=== PATIENT | male | born 1965 | race Caucasian/White ===

== ENCOUNTER 2022-01-07 10:19 | Emergency (ER) | payer BC ==
--- OUTSIDE RECORDS SUMMARY | 2022-01-07 10:21 | XMS REPORT | Continuity of Care Document ---
:1965 Author Organization [facility] t Address [address] [place] [address] [address]. [address] [place] [address] Care Team Providers Name Role Phone Sandra Alex Attending Clinician Unavailable Sandra Alex Admitting Clinician Unavailable Payers Payer Name Policy Type Policy Number Effective Date Expiration Date S ource Problems This patient has no known problems. Allergies, Adverse Reactions, Alerts Allergy Allergy Status Severity Reaction(s) Onset Inactive Treating Comm ents Source Name Type Date Date Clinician gene DA Active MO LISAY [facility] e 08-04 [place] 00:00: [facility] Medications This patient has no known medications. Procedures This patient has no known procedures. Encounters Start End Encounter Admission Attending Care Care Encounter Source Date/Time Date/Time Type Type Clinicians Facility Department ID 2021-08-14 2021-08-14 Outpatient MOMO BenjaminWEST albarranALIREZA DAYS [id number] [facility] 09:42:00 09:42:00 Maxim [id number] [place] [facility] 2021-08-14 2021-08-14 Outpatient LEONCIO Cali [facility] [id number] [facility] 09:42:00 09:42:00 Maxim 89 [place] [facility] Results Test Description Test Time Test Comments Results Result Comments Source [id number] 2021-08-14 08:55:00 Test Item Value Reference Range Interpretation Comme nts [id number] (test code = Negative Negative The test was performed at: [facility] [id number]) [facility]: 08/08/21Note: t his entry is for TRACKING purpos es only and the testwas done ou [facility], the perfroming entitiy isfound in specimen comments. The test was performed at: [facility] on: 08/08/21Patient's account number from transferring facility: [id number] patient's current lab results are: Negative
[2022-01-07] MEDS ORDERED: NA CHLORIDE 0.9% 1,000 ML ONE ×2 (11:24→14:27)
[2022-01-07 11:31] LABS: Absolute Lymphocytes (CBC) 0.6 K/uL (0.7-4.9); Hematocrit 38.9 % (39.6-49.0); Lymphocytes % 3.8 % (15.3-44.8); MPV 8.2 fL (7.6-11.3); RBC Red Blood Cell Count 4.78 M/uL (4.33-5.43)
[2022-01-07 11:34] LABS: Albumin 3.2 g/dL (3.4-5.0); Bilirubin Total 1.3 mg/dL (0.2-1.0); Protein, Total 7.1 g/dL (6.4-8.2)
[2022-01-07 11:35] LABS: Urine Blood 2+ (Negative); Urine Glucose Negative (Negative); Urine Protein 1+ (Negative); Urine Specific Gravity >=1.030 (1.005-1.030)
[2022-01-07 11:51] LABS: Urine Bacteria >50 /HPF (NONE SEEN); Urine Mucus 2+ /HPF (NONE SEEN); Urine Urothelial Cells <5 /HPF (NONE SEEN)
--- NOTE | 2022-01-07 12:25 | RAD REPORT ---
EXAM DESCRIPTION: CT - Abdomen Pelvis Wo Contrast - 01/07/2022 11:49 am CLINICAL HISTORY: abdominal pain, dysuria COMPARISON: <Comparisons> CT abdomen October 2021 TECHNIQUE: Axial [address] imaging of the abdomen and pelvis was performed without IV contrast. No IV contrast was given because of allergy, abnormal renal function, patient refusal or physician re quest. No oral contrast administered. All CT scans are performed using dose optimization technique as appropriate and may include automated exposure control or mA/KV adjustment according to patient size. FINDINGS: No suspicious findings in the lung bases. The liver, spleen and pancreas show no suspicious findings on non-contrast imaging. Liver attenuation shows mild fatty infiltration. Gallbladder is contracted. There are several small layering gallstone s which have been previously seen. No active findings. No biliary tree dilatation. Dilation of the right renal pelvis is present without hydroureter. This is similar to prior imaging. No obstructing or nonobstructing calculi. No edema or stranding in the perinephric fat. Small adrena l masses are present showing attenuation most consistent with adenomas. No change since October. Isoden se renal masses and pyelonephritis cannot be excluded in the absence of IV contrast. Urinary bladder is fully contracted. No bladder calculi seen. Bladder grubbs are accentuated due to contraction but do appear to have congestion or edema present. There is a minimal amount of stranding in the adjacent f at. Prostate gland is prominent with a small amount of stranding in the adjacent fat. Cystitis and/ o r prostatitis are suspected and can be correlated with clinical presentation and lab values. No dilated bowel loops or bowel wall thickening. Appendix is not identified. There appear to be clips the tip of the cecum. No acute right lower quadrant finding seen. No free air or pneumatosis. No mas s or bulky lymphadenopathy. Small to moderate-sized bilateral fat filled inguinal hernias are present . Small fat only umbilical hernia also present. Disc and bone degenerative changes are present. No acute or pathologic bone process. Degenerative francisco nges are most prominent at the L4-5 disc level. IMPRESSION: Cystitis and/ or prostatitis are suspected and can be correlated with clinical presentat ion and in the relevant lab studies. No hydronephrosis or obstructing calculi. No evidence for an acute renal or ureteral process. Additional nonacute findings detailed in the body of the report. Full assessment is limited is the absence of IV contrast.
[2022-01-07] MEDS ORDERED: CEFTRIAXONE 1000 MG/VIAL ONE (14:27)
[2022-01-07] MEDS ORDERED: NA CHLORIDE 0.9% 100 ML ONE (14:27)
--- NOTE | 2022-01-07 15:47 | EDPHYS ---
Physician Documentation [facility] Name: Doug Nieto Jr Age: 56 yrs Sex: Male : 1965 Arrival Date: 01/07/2022 Time: 10:21 Bed 5 Private MD: Cosme Velasquez B ED Physician Kris Mack HPI: 01/07 10:46 This 56 yrs old Male presents to ER via Ambulatory with complaints of Urinary Frequency.pm1 10:46 The patient presents with urinary symptoms, urinary frequency, burning with urination. pm1 Onset: The symptoms/episode began/occurred 2 day(s) ago. Modifying factors: The symptoms are alleviated by nothing, the symptoms are aggravated by nothing. Associated signs and symptoms: Pertinent positives: abdominal pain, Pertinent negatives: diarrhea, fever, nausea, vomiting. Severity of symptoms: in the emergency department the symptoms are actually worse. The patient has not experienced similar symptoms in the past. The patient has been recently seen at an urgent care, today, for similar complaints, and was sent to the [facility] Emergency Department for further evaluation. Historical: - Allergies: 10:30 Cortisone; as6 - Home Meds: 10:30 olmesartan oral [Active]; Magnesium Oxide Oral [Active]; as6 - PMHx: 10:30 Hypertensive disorder; as6 10:31 GERD; as6 - Immunization history:: Client reports receiving the 2nd dose of the Covid vaccine. - Social history:: Smoking status: Patient denies any tobacco usage or history of. ROS: 10:46 Constitutional: Negative for fever, chills, and weight loss, Cardiovascular: Negative pm1 for chest pain, palpitations, and edema, Respiratory: Negative for shortness of breath, cough, wheezing, and pleuritic chest pain. 10:46 Back: Negative for injury and pain. 10:46 MS/Extremity: Negative for injury and deformity, Skin: Negative for injury, rash, and discoloration, Neuro: Negative for headache, weakness, numbness, tingling, and seizure. 10:46 Abdomen/GI: Positive for abdominal pain, of the suprapubic area, Negative for nausea, vomiting, and diarrhea. 10:46 : Positive for urinary frequency, hematuria, burning with urination. 10:46 All other systems are negative. Exam: 10:46 Constitutional: This is a well developed, well nourished patient who is awake, alert, pm1 and in no acute distress. Head/Face: Normocephalic, atraumatic. 10:46 Back: No spinal tenderness. No costovertebral tenderness. Full range of motion. Skin: Warm, dry with normal turgor. Normal color with no rashes, no lesions, and no evidence of cellulitis. MS/ Extremity: Pulses equal, no cyanosis. Neurovascular intact. Full, normal range of motion. 10:46 Eyes: Exam is negative for acute changes, Periorbital structures: appear normal, Pupils: no acute changes, Extraocular movements: no acute changes. 10:46 ENT: Exam is negative for acute changes, Mouth: no acute changes, Lips: normal, moist, Oral mucosa: normal, pink and intact, moist. 10:46 Cardiovascular: Exam negative for acute changes, Rate: normal, Rhythm: regular, Pulses: no pulse deficits are appreciated. 10:46 Respiratory: Exam negative for acute changes, respiratory distress, shortness of breath, Breath sounds: are clear throughout. 10:46 Neuro: Exam negative for acute changes, Orientation: is normal, Mentation: is normal, Motor: is normal, moves all fours. 15:42 Abdomen/GI: Rectal exam: Prostate: enlarged, nontender, rectal tone normal. pm1 Vital Signs: 10:26 BP 104 / 60; Pulse 92; Resp 16; Temp 98.6; Pulse Ox 98% on R/A; Weight 136.08 kg; as6 Height 6 ft. 2 in. (187.96 cm); Pain 10/10; 11:15 BP 101 / 58; Pulse 80; Resp 18; Pulse Ox 98% on R/A; ww 13:00 BP 97 / 56; Pulse 78; Resp 18; Pulse Ox 96% on R/A; ww 14:00 BP 99 / 68; Pulse 86; Resp 16; Pulse Ox 100% on R/A; ww 16:00 BP 114 / 63; Pulse 98; Resp 18 S; Pulse Ox 100% on R/A; aa5 16:49 BP 112 / 64; Pulse 98; Resp 16 S; Pulse Ox 100% on R/A; aa5 10:26 Body Mass Index 38.52 (136.08 kg, 187.96 cm) as6 MDM: 10:39 Patient medically screened. pm1 10:46 ED course: Patient refused pain medications, reports pain is discomfort only. pm1 13:53 Data reviewed: vital signs. Data interpreted: Pulse oximetry: on room air is 98 %. pm1 Interpretation: normal. 15:42 Counseling: I had a detailed discussion with the patient and/or guardian regarding: the pm1 historical points, exam findings, and any diagnostic results supporting the discharge/admit diagnosis, lab results, radiology results, Discussed with patient and he would like to be admitted or to go home. Patient would like to go home. I agree with the patient's decision because he is not vomiting and does not appear toxic. Negative JUANPABLO and I do not clinically feel that prostatitis is present. Impression cystitis and dehydration. Will discharge the patient home with antibiotics. 01/07 10:46 Order name: CBC with Diff; Complete Time: 11:47 pm1 01/07 10:46 Order name: CMP; Complete Time: 11:47 pm1 01/07 10:46 Order name: Lipase; Complete Time: 11:47 pm1 01/07 10:46 Order name: Urine Microscopic Only; Complete Time: 12:40 pm1 01/07 11:35 Order name: Urine Dipstick-Ancillary; Complete Time: 11:47 EDMS 01/07 11:54 Order name: Urine Culture EDMS 01/07 10:46 Order name: IV Saline Lock; Complete Time: 11:10 pm1 01/07 10:46 Order name: Labs collected and sent; Complete Time: 11:10 pm1 01/07 10:46 Order name: Urine Dipstick-Ancillary (obtain specimen); Complete Time: 11:46 pm1 01/07 11:46 Order name: Abdomen ; Complete Time: 12:40 EDMS Administered Medications: 11:23 Drug: NS 0.9% 1000 ml Route: IV; Rate: 1 bolus; Site: left antecubital; ww 12:49 Follow up: Response: No adverse reaction; IV Status: Completed infusion ww 14:31 Drug: Rocephin (cefTRIAXone) 1 grams Route: IV; Rate: calculated rate; Site: left ww antecubital; 14:31 Drug: NS 0.9% 1000 ml Route: IV; Rate: 1000 ml; Site: left antecubital; ww 16:49 Follow up: IV Status: Completed infusion; IV Intake: 1000ml aa5 Disposition: 18:04 Co-signature as Attending Physician, Kris Mack MD. ma2 Disposition Summary: 01/07/22 15:46 Discharge Ordered Location: Home pm1 Problem: new pm1 Symptoms: have improved pm1 Condition: Stable pm1 Diagnosis - Acute cystitis pm1 Followup: pm1 - With: Emergency Department - When: As needed - Reason: Worsening of condition Followup: pm1 - With: Private Physician - When: 2 - 3 days - Reason: Recheck today's complaints, Continuance of care, Re-evaluation by your physician Discharge Instructions: - Discharge Summary Sheet pm1 - Dehydration, Adult pm1 - Urinary Tract Infection, Adult pm1 - Rehydration, Adult pm1 Forms: - Medication Reconciliation Form pm1 - Thank You Letter pm1 - Antibiotic Education pm1 - Prescription Opioid Use pm1 - Work release form pm1 Prescriptions: - Bactrim DS 800-160 mg Oral Tablet - take 1 tablet by ORAL route every 12 hours for 14 days; 28 tablet; Refills: 0, pm1 Product Selection Permitted Signatures: Dispatcher [employer] EDMS Fredrick Vanessa, CUSTOMER SALES CONSULTANT CUSTOMER SALES CONSULTANT pm1 Kris Mack MD MD ma2 Henrry Puga RN RN as6 Patricia Dexter, RAFAEL RN ww Loly Pulliam RN aa5 Corrections: (The following items were deleted from the chart) 10:32 10:30 PSHx: GERD; as6 as6 11:46 10:46 Abdomen Pelvis W Con+CT.RAD.BRZ ordered. EDMS EDMS
--- NOTE | 2022-01-07 15:47 | ER ---
Nurse's Notes [facility] Name: Doug Nieto Jr Age: 56 yrs Sex: Male : 1965 Arrival Date: 01/07/2022 Time: 10:21 Bed 5 Private MD: Cosme Velasquez B Diagnosis: Acute cystitis Presentation: 01/07 10:26 Chief complaint: Patient states: unable to void completely since Saturday; states lower as6 ABD pain with blood in the urine and burning upon urination; denies NV. Coronavirus screen: Vaccine status: Patient reports receiving the 2nd dose of the covid vaccine. Client denies travel out of the [place] in the last 14 days. Ebola Screen: Patient denies exposure to infectious person. Patient denies travel to an Ebola-affected area in the 21 days before illness onset. Initial Sepsis Screen: Does the patient meet any 2 criteria? No. Patient's initial sepsis screen is negative. Does the patient have a suspected source of infection? No. Patient's initial sepsis screen is negative. Risk Assessment: Do you want to hurt yourself or someone else? Patient reports no desire to harm self or others. Onset of symptoms was January 05, 2022. 10:26 Method Of Arrival: Ambulatory as6 10:26 Acuity: YUKO 3 as6 Triage Assessment: 10:31 General: Appears uncomfortable, Behavior is cooperative. Pain: Complains of pain in as6 suprapubic area, right lower quadrant and left lower quadrant. : Reports burning with urination, inability to void, pain in suprapubic area. Historical: - Allergies: 10:30 Cortisone; as6 - Home Meds: 10:30 olmesartan oral [Active]; Magnesium Oxide Oral [Active]; as6 - PMHx: 10:30 Hypertensive disorder; as6 10:31 GERD; as6 - Immunization history:: Client reports receiving the 2nd dose of the Covid vaccine. - Social history:: Smoking status: Patient denies any tobacco usage or history of. Screenin:08 Abuse screen: Denies threats or abuse. Denies injuries from another. Nutritional ww screening: No deficits noted. Tuberculosis screening: No symptoms or risk factors identified. Fall Risk None identified. Assessment: 11:00 General: Appears in no apparent distress. Behavior is calm, cooperative. Pain: ww Complains of pain in suprapubic area. Neuro: Level of Consciousness is awake, alert, obeys commands, Oriented to person, place, time, situation, Moves all extremities. Gait is steady, Speech is normal. Cardiovascular: Capillary refill < 3 seconds Patient's skin is warm and dry. Chest pain is denied. Respiratory: Airway is patent Respiratory effort is even, unlabored. GI: Abdomen is round. : Urine is cloudy, Reports inability to void. Derm: No signs and/or symptoms reported regarding the dermatologic system. Skin is intact, is healthy with good turgor. Musculoskeletal: No signs and/or symptoms reported regarding the musculoskeletal system. 12:03 Reassessment: Patient appears in no apparent distress at this time. No changes from previously documented assessment. Patient and/or family updated on plan of care and expected duration. Pain level reassessed. Patient is alert, oriented x 3, equal unlabored respirations, skin warm/dry/pink. 13:08 Reassessment: Patient appears in no apparent distress at this time. No changes from ww previously documented assessment. Patient and/or family updated on plan of care and expected duration. Pain level reassessed. Patient is alert, oriented x 3, equal unlabored respirations, skin warm/dry/pink. 14:31 Reassessment: Patient appears in no apparent distress at this time. No changes from ww previously documented assessment. Patient and/or family updated on plan of care and expected duration. Pain level reassessed. Patient is alert, oriented x 3, equal unlabored respirations, skin warm/dry/pink. 15:41 Reassessment: Patient appears in no apparent distress at this time. No changes from ww previously documented assessment. Patient and/or family updated on plan of care and expected duration. Pain level reassessed. Patient is alert, oriented x 3, equal unlabored respirations, skin warm/dry/pink. 16:23 Reassessment: Patient appears in no apparent distress at this time. No changes from ww previously documented assessment. Patient and/or family updated on plan of care and expected duration. Pain level reassessed. Patient is alert, oriented x 3, equal unlabored respirations, skin warm/dry/pink. 16:49 Reassessment: Patient is alert, oriented x 3, equal unlabored respirations, skin aa5 warm/dry/pink. Vital Signs: 10:26 BP 104 / 60; Pulse 92; Resp 16; Temp 98.6; Pulse Ox 98% on R/A; Weight 136.08 kg; as6 Height 6 ft. 2 in. (187.96 cm); Pain 10/10; 11:15 BP 101 / 58; Pulse 80; Resp 18; Pulse Ox 98% on R/A; ww 13:00 BP 97 / 56; Pulse 78; Resp 18; Pulse Ox 96% on R/A; ww 14:00 BP 99 / 68; Pulse 86; Resp 16; Pulse Ox 100% on R/A; ww 16:00 BP 114 / 63; Pulse 98; Resp 18 S; Pulse Ox 100% on R/A; aa5 16:49 BP 112 / 64; Pulse 98; Resp 16 S; Pulse Ox 100% on R/A; aa5 10:26 Body Mass Index 38.52 (136.08 kg, 187.96 cm) as6 ED Course: 10:21 Patient arrived in ED. as 10:21 Cosme Velasquez MD is Private Physician. as 10:30 Triage completed. as6 10:31 Arm band placed on. as6 10:35 Fredrick Vanessa NP is PHCP. pm1 10:35 Kris Mack MD is Attending Physician. pm1 10:35 Bed in low position. Call light in reach. Side rails up X 1. Door closed. Noise mb7 minimized. Warm blanket given. 10:46 Patricia Dexter, RN is Primary Nurse. ww 11:09 Diet: Patient given water. mb7 11:09 Inserted saline lock: 20 gauge in left antecubital area, using aseptic technique. Blood mb7 collected. 11:10 CBC with Diff Sent. mb7 11:10 Lipase Sent. mb7 11:10 CMP Sent. mb7 11:35 Urine Microscopic Only Sent. mb7 11:51 Abdomen In Process Unspecified. EDMS 16:49 No provider procedures requiring assistance completed. IV discontinued, intact, aa5 bleeding controlled, No redness/swelling at site. Pressure dressing applied. Administered Medications: 11:23 Drug: NS 0.9% 1000 ml Route: IV; Rate: 1 bolus; Site: left antecubital; ww 12:49 Follow up: Response: No adverse reaction; IV Status: Completed infusion ww 14:31 Drug: Rocephin (cefTRIAXone) 1 grams Route: IV; Rate: calculated rate; Site: left ww antecubital; 14:31 Drug: NS 0.9% 1000 ml Route: IV; Rate: 1000 ml; Site: left antecubital; 16:49 Follow up: IV Status: Completed infusion; IV Intake: 1000ml aa5 Medication: 16:49 VIS not applicable for this client. aa5 Intake: 16:49 IV: 1000ml; Total: 1000ml. aa5 Outcome: 15:46 Discharge ordered by MD. pm1 16:49 Patient left the ED. aa5 16:49 Discharged to home ambulatory, with family. aa5 16:49 Condition: stable 16:49 Discharge instructions given to patient, Instructed on discharge instructions, follow up and referral plans. medication usage, Demonstrated understanding of instructions, follow-up care, medications, Prescriptions given X 1. Addendum: 01/10/2022 10:20 Addendum: Culture Results: Positive urine culture. No further action required. Bacteria i w sensitive to prescribed antibiotic. Signatures: Dispatcher [employer] Missy Ackerman Irene, RAFAEL HALL Loly Pulliam RN RN aa5 Fredrick Vanessa, CREATIVE DIRECTOR CREATIVE DIRECTOR pm1 Henrry Puga RN RN as6 Luz Crews mb7 Patricia Dexter, RAFAEL RN ww Corrections: (The following items were deleted from the chart) 01/07 10:32 10:30 PSHx: GERD; as6 as6 16:49 16:47 Patient left the ED. aa5 aa5
[2022-01-07 16:55] VITALS: TEMP 98.6
[2022-01-07 17:01] VITALS: BP 99/68; O2SAT 100
== END 2022-01-07 16:47 | disposition home or self-care (01) ==
LOC: ER 10:19
DX: N30.00 Acute cystitis without hematuria (principal); R35.0 Frequency of micturition; I10 Essential (primary) hypertension; Z91.048 Other nonmedicinal substance allergy status
CPT/HCPCS: 96361; 87088; 85025; 87086; 36415; 87077; 87186; 83690; 80053; 74176; 96374; 99284; J7030 ×2; 81003; 81015

== ENCOUNTER 2023-01-28 08:40 | Day surgery (SDC) | payer BC ==
[2023-01-28] MEDS ORDERED: CEFAZOLIN SODIUM 1 GM/VIAL ONE (09:15)
[2023-01-28] MEDS: Ringers Lactate 1,000 ML IV ONE ×2 (09:28→11:20)
[2023-01-28] MEDS ORDERED: KETOROLAC 30 MG/ML INJ ONE (09:33)
[2023-01-28] MEDS ORDERED: FENTANYL CITR 100 MCG/2 ML ONE (09:33)
[2023-01-28] MEDS ORDERED: LIDOCAINE 2% MPF 5 ML VIAL ONE (09:33)
[2023-01-28] MEDS ORDERED: MIDAZOLAM HCL 2 MG/2 ML INJ ONE (09:33)
[2023-01-28] MEDS ORDERED: propofoL 200 MG/20 ML VIAL IV ONE (09:33)
[2023-01-28] MEDS ORDERED: ONDANSETRON 4 MG/2 ML VIAL ONE (09:35)
[2023-01-28] MEDS ORDERED: BUPIVACAINE 0.5% PF 10 ML VIAL ONE (10:38)
--- NOTE | 2023-01-28 12:04 | OP ---
Date of Procedure: 01/28/2023 Surgeon: Avery Pinon MD Strategic Planning Specialist: EDWINA Henriquez. Preoperative Diagnosis: Posterior neck infected subcutaneous mass. Postoperative Diagnosis: Posterior neck infected subcutaneous mass. Procedure: Excisional biopsy of left posterior neck infected subcutaneous mass 3 x 3 cm. Specimen: Mass. Finding: Subcutaneous mass. There are cultures done of that area. Complications: None. Anesthesia: General plus local. Indication: This is the case of a 57-year-old patient, who comes to us with a mass in the left poste rior neck, again it infected better. On his last time, he was having infected and some discharge com ing from that area. He was started on antibiotics few days ago and then offered excisional biopsy of that infected mass. We understand he may need to have wound care and packing for the next few month s. Obviously, he preferred to be closed, but it is hard to say until we can close that area or not. So, we offered him excisional biopsy with benefits, alternatives, and risks including, but not limit ed to infection, bleeding, damage to adjacent structures, anesthesia complication, nonhealing wound, MO, and even . He also understands this may not relieve any symptoms. He might need more than one surgical intervention. He might need wound care. He signed a consent. The area of concern was marked by me and the patient in the holding room. Procedure In Detail: The patient was brought to the operating room, placed in supine position. Anes thesia was done without complication. Neck area was prepped and draped in the usual sterile fashion after placing the patient in the left decubitus position with proper protection. After that, I proce eded to make a wedge incision in the skin. The incision was carried down to deep subcutaneous tissue . The mass was excised. We cultured the mass content. We irrigated the area profusely, obtained he mostasis, then proceeded to close this in layers as we did not see any pus in the subcutaneous tissue . The area was irrigated and then the skin was approximated with nylon. Sponge count, instrument co unts correct. The patient tolerated the procedure well. The patient sent to recovery in stable cond ition. HM/RUDDYL Voice ID: [id number] Report ID: [id number]
--- NOTE | 2023-01-28 12:04 | DS ---
Diagnosis: Left posterior neck infected mass. Procedure: Excisional biopsy of posterior neck infected subcutaneous mass. Disposition: Home. Activity: As tolerated. No heavy lifting. Plan: Follow up in my office in 1 week. Call for appointment at [phone]. Keep area dry for 48 iraj rs, then may shower. JOSHUA/ANN Voice ID: [id number] Report ID: [id number]
--- NOTE | 2023-01-28 14:40 | RAD REPORT ---
EXAM DESCRIPTION: RAD - Chest Pa And Lat (2 Views) - 01/28/2023 2:31 pm CLINICAL HISTORY: PER OP Chest pain. COMPARISON: <Comparisons> FINDINGS: The lungs are clear. The heart is normal in size. No displaced fractures. IMPRESSION: No acute or concerning finding suspected.
--- NOTE | 2023-01-28 15:41 | EKG ---
Test Date: 2023-01-28 Test Time: 08:16:38 Sign Painter Apprentice: SHERIE MEASUREMENT RESULTS: Intervals: Rate: 73 MA: 198 QRSD: 146 QT: 442 QTc: 486 Byron: P: 51 MA: 198 QRS: 85 T: 45 INTERPRETIVE STATEMENTS: Normal sinus rhythm Right bundle branch block Abnormal ECG No previous ECG available for comparison Electronically Signed On 01-28-23 15:40:51 CDT by Ori Zacarias
[2023-01-28 17:01] LABS: Potassium 4.1 mEq/L (3.5-5.1)
[2023-01-28 17:08] LABS: Absolute Lymphocytes (CBC) 1.8 K/uL (0.7-4.9); Hematocrit 42.3 % (39.6-49.0); Lymphocytes % 31.7 % (15.3-44.8); MCV 79.5 fL (80-100); MPV 8.5 fL (7.6-11.3); RBC Red Blood Cell Count 5.32 M/uL (4.33-5.43)
== END 2023-01-28 11:24 | disposition home or self-care (01) ==
LOC: OR 08:40
PROVIDERS: ATTEND Surgery
PROC: 0JB50ZZ Excision of Left Neck Subcutaneous Tissue and Fascia, Open Approach (ICD-10-PCS; principal; 2023-01-28 10:30)
DX: L72.9 Follicular cyst of the skin and subcutaneous tissue, unspecified (principal)
CPT/HCPCS: 11423; 93005; 87070; 85025; 80048; 36415; 87205; 88304; 87075; 71046; J2704; J2001; J2250; J3010; J2405; J7120; J0690